=== PATIENT | female | born 1995 | race Caucasian/White ===

== ENCOUNTER 2022-05-26 03:51 | Inpatient (IN) ==
[~2022-05-26 03:51] MED LIST: *HR* Oxytocin 10 UNIT/ML VIAL ONE; Famotidine 20 MG/2 ML VIAL IVP PRN; Metoclopramide 10 MG/2 ML VIAL IVP PRN; Naloxone 0.4 MG/ML INJ IVP PRN
[2022-05-26] MEDS ORDERED: Ondansetron ODT 4 MG TAB.RAPDIS SL PRN (04:47)
[2022-05-26] MEDS ORDERED: Measles/Mumps/Rubella Vacc 0.5 ML VIAL SQ PRN (04:47)
[2022-05-26] MEDS ORDERED: Benzocaine/Menthol 56 GM AEROSOL SPRAY TP PRN (04:47)
[2022-05-26] MEDS ORDERED: Lanolin 7 G OINT...G. TP PRN (04:47)
[2022-05-26] MEDS ORDERED: Rho Immune Globulin 1,500 UNIT SYRINGE IM PRN (04:47)
[2022-05-26] MEDS: Acetaminophen 325 MG TABLET PO SCH ×2 (05:24→18:56)
[2022-05-26] MEDS: Ibuprofen 600 MG TABLET PO SCH ×3 (07:59→18:56)
[2022-05-26] MEDS: Prenatal Vit/FA 1 EACH TABLET PO SCH (08:00)
[2022-05-27 04:02] LABS: Basophils % 0.2 %; Eosinophils # 0.2 K/mcL (0.0-0.6); Eosinophils % 1.2 %; Hematocrit 37.1 % (35.3-44.9); Hemoglobin 13.2 g/dL (11.5-15.4); Immature Granulocytes % 0.7 % (0-4); Lymphocytes # 3.4 K/mcL (0.6-4.6); Lymphocytes % 24.6 %; Mean Corpuscular HGB Conc 35.6 g/dL (31.6-35.5); Mean Corpuscular Hemoglobin 30.9 pg (28.0-33.3); Mean Corpuscular Volume 86.9 fL (83.0-100.0); Mean Platelet Volume 9.9 fL (9.4-12.4); Monocytes % 7.1 %; Neutrophils # 9.1 K/mcL (1.6-8.9); Platelet Count 209 K/mcL (140-400); Red Blood Count 4.27 M/mcL (3.82-4.97); Red Cell Distribution Width 12.6 % (11.5-14.5); Segmented Neutrophils % 66.2 %; White Blood Count 13.7 K/mcL (4.3-11.1)
[2022-05-27 06:35] VITALS: BP 114/69; PULSE 65; TEMP 97.9; O2SAT 99
[2022-05-27] MEDS: Ibuprofen 600 MG TABLET PO SCH (09:00)
[2022-05-27] MEDS: Prenatal Vit/FA 1 EACH TABLET PO SCH (09:01)
[2022-05-27] MEDS: Acetaminophen 325 MG TABLET PO SCH (09:01)
== END 2022-05-27 11:27 | disposition home or self-care (01) | DRG 807 ==
LOC: 1NENULAB → 1NENUOBS 05:59
PROVIDERS: ADMIT Obstetrics & Gynecology; ATTEND Obstetrics & Gynecology